=== PATIENT | female | born 1960 | race Caucasian/White ===

== ENCOUNTER → 2024-11-15 17:06 | Outpatient (REF) | payer OTHER, SELFPAY | LOC: RAD 17:06 | PROVIDERS: ATTENDING PHYSICIAN Physician Assistant | DX: E04.2 Nontoxic multinodular goiter (principal) | CPT/HCPCS: 76536 ==

== ENCOUNTER → 2024-11-29 13:49 | Outpatient (REF) | payer OTHER, SELFPAY | LOC: HWRAD 13:49 | PROVIDERS: ATTENDING PHYSICIAN Physician Assistant | DX: Z87.891 Personal history of nicotine dependence (principal) | CPT/HCPCS: 71271 ==